=== PATIENT | male | born 1995 | race African-American/Black ===

== ENCOUNTER 2018-10-06 09:46 | Inpatient (IN) | payer OTHER ==
--- NOTE | 2018-10-06 11:34 | HP ---
COWS - Scale Resting Pulse: 0= [place] 80 or Below Sweatin= Chills/Flushing Restless Observation: 1= Difficult to Sit Still Pupil Size: 2= Moderately Dilated Bone or Joint Aches: 2= Severe Diffuse Aches Runny Nose/ Eye Tearin= Runny Nose/Eyes GI Upset > 30mins: 3= Vomiting/Diarrhea Tremor Observation: 2= Slight Tremor Visible Yawning Observation: 2= >3x During Session Anxiety or Irritability: 2=Irritable/Anxious Goose Flesh Skin: 0=Smooth Skin COWS Score: 17 CIWA Score - Admission Criteria OASAS Guidelines: Admission for Medically Managed Detox: Requires at least one of the followin. CIWA greater than 12 2. Seizures within the past 24 hours 3. Delirium tremens within the past 24 hours 4. Hallucinations within the past 24 hours 5. Acute intervention needed for co occurring medical disorder 6. Acute intervention needed for co occurring psychiatric disorder 7. Severe withdrawal that cannot be handled at a lower level of care (continued vomiting, continued diarrhea, abnormal vital signs) requiring intravenous medication and/or fluids 8. Admission ROS [facility] - HPI Chief Complaint: i need help to stop using heroin Allergies/Adverse Reactions: Allergies Allergy/AdvReac Type Severity Reaction Status Date / Time No Known Allergies Allergy Verified 10/06/18 11:34 History of Present Illness: this 23 years old male with heroin dependence,seeking detox,withdrawal symptom never been in detox before nicotine dependence 1 pack/day,would like to have nicotine patch and gum bipolar disorder,depression,non compliance Exam Limitations: No Limitations - Ebola screening Have you traveled outside of the country in the last 21 days: No (N) Have you had contact with anyone from an Ebola affected area: No Do you have a fever: No - Review of Systems Constitutional: Chills, Loss of Appetite, Malaise, Night Sweats, Changes in sleep, Weakness, Unintentional Wgt. Loss EENT: reports: Tearing, Nose Congestion Respiratory: reports: No Symptoms reported Cardiac: reports: No Symptoms Reported GI: reports: Nausea, Poor Appetite, Abdominal cramping : reports: No Symptoms Reported Musculoskeletal: reports: Back Pain, Joint Pain, Muscle Pain Integumentary: reports: Dryness Neuro: reports: Tremors Endocrine: reports: No Symptoms Reported Hematology: reports: No Symptoms Reported Psychiatric: reports: No Sypmtoms Reported, Judgement Intact, Mood/Affect Appropiate, Orientated x3, other (bipolar disorder,anxiety,depression) Patient History - Patient Medical History Hx Anemia: No Hx Asthma: No Hx Chronic Obstructive Pulmonary Disease (COPD): No Hx Cancer: No Hx Cardiac Disorders: No Hx Congestive Heart Failure: No Hx Hypertension: No Hx Hypercholesterolemia: No Hx Pacemaker: No HX Cerebrovascular Accident: No Hx Seizures: No Hx Dementia: No Hx Diabetes: No Hx Gastrointestinal Disorders: No Hx Liver Disease: No Hx Genitourinary Disorders: No Hx Sexually Transmitted Disorders: No Hx Renal Disease (ESRD): No Hx Thyroid Disease: No Hx Human Immunodeficiency Virus (HIV): No (last 2017 negative) Hx Hepatitis C: No Hx Depression: Yes Hx Suicide Attempt: No Hx Bipolar Disorder: Yes (no med) Hx Schizophrenia: No Other Medical History: no suicidal,no homicidal - Patient Surgical History Past Surgical History: No - Smoking Cessation Smoking history: Current every day smoker Have you smoked in the past 12 months: Yes Aproximately how many cigarettes per day: 20 Hx Chewing Tobacco Use: No Initiated information on smoking cessation: Yes 'Breaking Loose' booklet given: 10/06/18 - Substance & Tx. History Hx Alcohol Use: Yes Hx Substance Use: Yes Substance Use Type: Alcohol, Heroin, Marijuana Hx Substance Use Treatment: No - Substances abused Heroin Substance route: Injection Frequency: Daily Amount used: 10 bags Age of first use: 22 Date of last use: 10/06/18 Marijuana/Hashish Substance route: Smoking Frequency: 1-3 times last 30 days Amount used: 30$ Age of first use: 15 Date of last use: 10/06/18 Alcohol Substance route: Oral Frequency: 1-2 times per week Amount used: 06/01 vodka Age of first use: 13 Date of last use: 09/27/18 Family Disease History - Family Disease History Family Disease History: Other: Grandparent (alcohol,) Admission Physical Exam [facility] - Physical General Appearance: Yes: Moderate Distress, Tremorous, Irritable, Sweating, Anxious HEENTM: Yes: Within Normal Limits, Normal ENT Inspection, DE, Pharynx Normal Respiratory: Yes: Lungs Clear, Normal Breath Sounds, No Respiratory Distress Neck: Yes: Within Normal Limits, Supple, Trachea in good position Breast: Yes: Within Normal Limits Cardiology: Yes: Within Normal Limits, Regular Rhythm, Regular Rate, S1, S2 Abdominal: Yes: Within Normal Limits, Normal Bowel Sounds, Non Tender, Flat, Soft Genitourinary: Yes: Within Normal Limits Back: Yes: Muscle Spasm Musculoskeletal: Yes: full range of Motion, Back pain, Joint Stiffness, Muscle Pain Extremities: Yes: Tremors Neurological: Yes: outside salesman II-XII NML intact, Fully Oriented, Alert, Motor Strength 5/5 Integumentary: Yes: Dry, Track Kwon Lymphatic: Yes: Within Normal Limits - Diagnostic (1) Opioid dependence with withdrawal Current Visit: Yes Status: Acute (2) Cannabis dependence Current Visit: Yes Status: Acute (3) Alcohol abuse Current Visit: Yes Status: Acute (4) Nicotine dependence Current Visit: Yes Status: Acute (5) Weight loss Current Visit: Yes Status: Acute (6) IVDU (intravenous drug user) Current Visit: Yes Status: Acute (7) Bipolar disorder (manic depression) Current Visit: Yes Status: Acute Cleared for Admission S - Detox or Rehab [facility] Level of Care: Medically Managed Detox Regimen/Protocol: Methadone Inpatient Rehab Admission - Rehab Decision to Admit Inpatient rehab admission?: No
[2018-10-06] MEDS ORDERED: BISMUTH SUBSALICYLATE 524 MG/30 ML UD PO PRN (11:52)
[2018-10-06] MEDS ORDERED: MENTHOL/PHENOL 1 EACH UD MM PRN (11:52)
[2018-10-06] MEDS ORDERED: IBUPROFEN 400 MG TABLET (FP) PO PRN (11:52)
[2018-10-06] MEDS ORDERED: MAGNESIUM HYDROX 2400MG/30ML ORAL SUSPENSION 30 ML CUP PO PRN (11:52)
[2018-10-06] MEDS ORDERED: MAGNESIUM CITRATE 300 ML BOTTLE PO PRN (11:52)
[2018-10-06] MEDS ORDERED: cloNIDine HCL 0.1 MG TABLET PO PRN (11:52)
[2018-10-06] MEDS ORDERED: ACETAMINOPHEN 325 MG TABLET (FP) PO PRN ×2 (11:52)
[2018-10-06] MEDS ORDERED: METHADONE HCL 10 MG TABLET (FOR DETOX USE ONLY) PO ONE ×2 (11:56→23:00)
[2018-10-06 12:13] VITALS: BMI 22.0
[2018-10-06] MEDS: diazePAM 5 MG TABLET PO PRN ×2 (13:25→18:18)
[2018-10-06] MEDS: NICOTINE 21 MG/24 HOURS TOPICAL PATCH TD SCH (13:28)
[2018-10-06] MEDS: METHOCARBAMOL 500 MG TABLET PO PRN (18:18)
[2018-10-06] MEDS: THIAMINE HCL 100 MG TABLET (FP) PO SCH (22:38)
[2018-10-06] MEDS: MELATONIN 5 MG TABLETS PO PRN (22:38)
[2018-10-07] MEDS ORDERED: METHADONE HCL 10 MG TABLET (FOR DETOX USE ONLY) PO ONE (10:00)
[2018-10-07 10:07] LABS: HEMATOCRIT 35.2 % (35.4-49); MCHC 31.3 g/dl (32.0-35.9); MEAN CELL VOLUME 76.5 fl (80-96); PLATELET COUNT 268 K/MM3 (134-434); RDW 14.6 % (11.9-15.9); WHITE BLOOD COUNT 5.5 K/mm3 (4.0-10.0)
[2018-10-07] MEDS: NICOTINE 21 MG/24 HOURS TOPICAL PATCH TD SCH (10:07)
[2018-10-07] MEDS: PRENATAL VITAMINS W/ FOLIC ACID TABLET (FP) PO SCH (10:07)
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
[2018-10-07] MEDS: diazePAM 5 MG TABLET PO PRN ×4 (10:41→23:10)
[2018-10-07] MEDS: METHOCARBAMOL 500 MG TABLET PO PRN (10:41)
[2018-10-07 10:53] LABS: ALBUMIN 3.3 g/dl (3.4-5.0); BILIRUBIN,TOTAL 0.1 mg/dL (0.2-1); CALCIUM 8.6 mg/dL (8.5-10.1); CREATININE 0.7 mg/dL (0.55-1.3); POTASSIUM 3.9 mmol/L (3.5-5.1); TOT PROT 6.2 g/dl (6.4-8.2)
[2018-10-07] MEDS: NICOTINE POLACRILEX 2 MG GUM BUC PRN ×3 (10:57→19:19)
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
--- NOTE | 2018-10-07 15:10 | EKG ---
Test Reason : Blood Pressure : / mmHG Vent. Rate : 057 BPM Atrial Rate : 057 BPM P-R Int : 158 ms QRS Dur : 092 ms QT Int : 412 ms P-R-T Axes : 069 071 052 degrees QTc Int : 401 ms SINUS BRADYCARDIA MINIMAL VOLTAGE CRITERIA FOR LVH, MAY BE NORMAL VARIANT BORDERLINE ECG NO PREVIOUS ECGS AVAILABLE Confirmed by ADDIE TOMLINSON MD ([id number]) on 10/07/2018 3:10:10 PM Referred By: Confirmed By:ADDIE TOMLINSON MD
[2018-10-07] MEDS: FERROUS SO4 325 MG TABLET (FP) PO SCH (18:02)
[2018-10-07] MEDS: THIAMINE HCL 100 MG TABLET (FP) PO SCH (22:59)
[2018-10-07] MEDS: MELATONIN 5 MG TABLETS PO PRN (23:09)
[2018-10-08] MEDS: diazePAM 5 MG TABLET PO PRN ×4 (06:19→22:36)
[2018-10-08] MEDS: FERROUS SO4 325 MG TABLET (FP) PO SCH ×2 (07:20→16:49)
[2018-10-08] MEDS ORDERED: METHADONE HCL 10 MG TABLET (FOR DETOX USE ONLY) PO ONE (10:00)
--- NOTE | 2018-10-08 10:26 | PN ---
BHS COWS - Scale Resting Pulse: 0= [place] 80 or Below Sweatin= Chills/Flushing Restless Observation: 1= Difficult to Sit Still Pupil Size: 1= Pupils >than Normal Bone or Joint Aches: 2= Severe Diffuse Aches Runny Nose/ Eye Tearin= Nasal Congestion GI Upset > 30mins: 2= Nausea/Diarrhea Tremor Observation of Outstretched Hands: 2= Slight Tremor Visible Yawning Observation: 1= 1-2x During Session Anxiety or Irritability: 2=Irritable/Anxious Goose Flesh Skin: 0=Smooth Skin COWS Score: 13 BHS Progress Note (SOAP) Subjective: alert,irritable,anxious,interrupted sleep,tremor,pain in the body and back Objective: 10/08/18 10:25 Vital Signs Temperature 97.7 F 10/08/18 09:26 Pulse Rate 486 H 10/08/18 09:26 Respiratory Rate 18 10/08/18 09:26 Blood Pressure 100/55 L 10/08/18 09:26 O2 Sat by Pulse Oximetry (%) Assessment: 10/08/18 10:26 withdrawal symptom Plan: continue detox
[2018-10-08] MEDS: NICOTINE 21 MG/24 HOURS TOPICAL PATCH TD SCH (11:17)
[2018-10-08] MEDS: PRENATAL VITAMINS W/ FOLIC ACID TABLET (FP) PO SCH (11:17)
[2018-10-08 12:25] LABS: PH,URINE 6.5 (5.0-8.0); URINE APPEARANCE CLEAR; URINE BILIRUBIN NEGATIVE (NEGATIVE); URINE COLOR YELLOW; URINE GLUCOSE (UA) NEGATIVE (NEGATIVE); URINE KETONE NEGATIVE (NEGATIVE); URINE LEUK ESTERASE NEGATIVE (NEGATIVE); URINE NITRITE NEGATIVE (NEGATIVE); URINE PROTEIN NEGATIVE (NEGATIVE); URINE UROBILINOGEN 0.2 mg/dL (0.2-1.0)
[2018-10-08] MEDS: NICOTINE POLACRILEX 2 MG GUM BUC PRN ×2 (14:46→22:36)
[2018-10-08] MEDS: MAG HYDROX/AL HYDROX/SIMETH 30 ML UNIT-DOSE CUP PO PRN (16:17)
[2018-10-08] MEDS: THIAMINE HCL 100 MG TABLET (FP) PO SCH (22:33)
[2018-10-08] MEDS: METHOCARBAMOL 500 MG TABLET PO PRN (22:36)
[2018-10-09] MEDS: diazePAM 5 MG TABLET PO PRN ×2 (06:16→10:06)
[2018-10-09] MEDS: FERROUS SO4 325 MG TABLET (FP) PO SCH ×2 (07:18→16:45)
[2018-10-09] MEDS ORDERED: METHADONE HCL 5 MG TABLET (FOR DETOX USE ONLY) ONE (08:51)
[2018-10-09] MEDS ORDERED: METHADONE HCL 10 MG TABLET (FOR DETOX USE ONLY) ONE (08:51)
[2018-10-09] MEDS ORDERED: METHADONE (DETOX) 10 MG, METHADONE (DETOX) 5 MG PO ONE (10:00)
[2018-10-09] MEDS ORDERED: METHADONE HCL 10 MG TABLET (FOR DETOX USE ONLY) PO ONE (10:00)
[2018-10-09] MEDS: PRENATAL VITAMINS W/ FOLIC ACID TABLET (FP) PO SCH (10:05)
[2018-10-09] MEDS: NICOTINE 21 MG/24 HOURS TOPICAL PATCH TD SCH (10:06)
[2018-10-09] MEDS: METHOCARBAMOL 500 MG TABLET PO PRN ×2 (10:06→22:11)
--- NOTE | 2018-10-09 15:06 | PN ---
BHS COWS - Scale Resting Pulse: 0= [place] 80 or Below Sweatin= No chills or Flushing Restless Observation: 1= Difficult to Sit Still Pupil Size: 0= Normal to Room Light Bone or Joint Aches: 2= Severe Diffuse Aches Runny Nose/ Eye Tearin= None GI Upset > 30mins: 2= Nausea/Diarrhea Tremor Observation of Outstretched Hands: 0= None Yawning Observation: 1= 1-2x During Session Anxiety or Irritability: 2=Irritable/Anxious Goose Flesh Skin: 0=Smooth Skin COWS Score: 8 BHS Progress Note (SOAP) Subjective: Diarrhea, Body Aches, Anxious, Interrupted Sleep. Objective: PATIENT A & O X 3, OBSERVED AMBULATING ON UNIT UNASSISTED. IN NO ACUTE DISTRESS. 10/09/18 15:04 Vital Signs Temperature 96.6 F L 10/09/18 13:18 Pulse Rate 78 10/09/18 13:18 Respiratory Rate 18 10/09/18 13:18 Blood Pressure 122/71 10/09/18 13:18 O2 Sat by Pulse Oximetry (%) Laboratory Tests 10/07/18 10/07/18 10/07/18 07:40 07:40 07:40 WBC 5.5 RBC 4.60 Hgb 11.0 L Hct 35.2 L MCV 76.5 L MCH 24.0 L MCHC 31.3 L RDW 14.6 Plt Count 268 MPV 8.0 Sodium 137 Potassium 3.9 Chloride 106 Carbon Dioxide 26 Anion Gap 6 L BUN 9 Creatinine 0.7 Est GFR (CKD-EPI)AfAm 155.25 Est GFR (CKD-EPI)NonAf 133.96 Random Glucose 90 Calcium 8.6 Total Bilirubin 0.1 L AST 16 ALT 27 Alkaline Phosphatase 70 Total Protein 6.2 L Albumin 3.3 L Urine Color Urine Appearance Urine pH Ur Specific [place] Urine Protein Urine Glucose (UA) Urine Ketones Urine Blood Urine Nitrite Urine Bilirubin Urine Urobilinogen Ur Leukocyte Esterase RPR Titer Nonreactive HIV 1&2 Antibody Screen HIV P24 Antigen 10/07/18 10/08/18 11:50 07:30 WBC RBC Hgb Hct MCV MCH MCHC RDW Plt Count MPV Sodium Potassium Chloride Carbon Dioxide Anion Gap BUN Creatinine Est GFR (CKD-EPI)AfAm Est GFR (CKD-EPI)NonAf Random Glucose Calcium Total Bilirubin AST ALT Alkaline Phosphatase Total Protein Albumin Urine Color Yellow Urine Appearance Clear Urine pH 6.5 Ur Specific [place] 1.022 Urine Protein Negative Urine Glucose (UA) Negative Urine Ketones Negative Urine Blood Negative Urine Nitrite Negative Urine Bilirubin Negative Urine Urobilinogen 0.2 Ur Leukocyte Esterase Negative RPR Titer HIV 1&2 Antibody Screen Negative HIV P24 Antigen Negative LABS NOTED. Assessment: 10/09/18 15:05 WITHDRAWAL SYMPTOMS. ANEMIA (MICROCYTIC). PATIENT REPORTS HISTORY OF ANEMIA IN PAST. Plan: CONTINUE DETOX. INCREASE DAILY PO FLUID / WATER INTAKE. CONTINUE FEOSOL PO.
[2018-10-09] MEDS: hydrOXYzine PAMOATE 25 MG CAPSULE (FP) PO PRN ×2 (16:45→22:11)
[2018-10-09] MEDS: MELATONIN 5 MG TABLETS PO PRN (22:11)
[2018-10-09] MEDS: THIAMINE HCL 100 MG TABLET (FP) PO SCH (22:29)
[2018-10-10] MEDS: hydrOXYzine PAMOATE 25 MG CAPSULE (FP) PO PRN (05:42)
[2018-10-10] MEDS ORDERED: METHADONE HCL 5 MG TABLET (FOR DETOX USE ONLY) PO ONE (06:00)
[2018-10-10] MEDS: FERROUS SO4 325 MG TABLET (FP) PO SCH ×2 (09:51→16:56)
[2018-10-10] MEDS: PRENATAL VITAMINS W/ FOLIC ACID TABLET (FP) PO SCH (09:51)
[2018-10-10] MEDS: NICOTINE 21 MG/24 HOURS TOPICAL PATCH TD SCH (09:52)
[2018-10-10] MEDS ORDERED: METHADONE HCL 10 MG TABLET (FOR DETOX USE ONLY) PO ONE (10:00)
[2018-10-10] MEDS: hydrOXYzine PAMOATE 50 MG CAPSULE (FP) PO PRN ×3 (10:41→22:48)
[2018-10-10] MEDS: MAG HYDROX/AL HYDROX/SIMETH 30 ML UNIT-DOSE CUP PO PRN (11:38)
--- NOTE | 2018-10-10 14:31 | PN ---
S Progress Note (SOAP) Subjective: alert,irritable,anxious,interrupted sleep Objective: 10/10/18 14:30 Vital Signs Temperature 97.0 F L 10/10/18 10:34 Pulse Rate 93 H 10/10/18 10:34 Respiratory Rate 18 10/10/18 10:34 Blood Pressure 143/76 10/10/18 10:34 O2 Sat by Pulse Oximetry (%) Assessment: 10/10/18 14:30 withdrawal symptom Plan: continue detox,discharge in am
[2018-10-10] MEDS: MELATONIN 5 MG TABLETS PO PRN (22:48)
[2018-10-10] MEDS: METHOCARBAMOL 500 MG TABLET PO PRN (22:48)
[2018-10-10] MEDS: THIAMINE HCL 100 MG TABLET (FP) PO SCH (23:40)
[2018-10-11] MEDS ORDERED: METHADONE HCL 5 MG TABLET (FOR DETOX USE ONLY) PO ONE (06:00)
[2018-10-11] MEDS: hydrOXYzine PAMOATE 50 MG CAPSULE (FP) PO PRN (06:03)
[2018-10-11] MEDS: FERROUS SO4 325 MG TABLET (FP) PO SCH (07:00)
[2018-10-11 07:01] VITALS: BP 112/58; PULSE 60; TEMP 97.7
--- NOTE | 2018-10-11 09:34 | DS ---
[facility] Detox Discharge Summary Admission Date: 10/06/18 Discharge Date: 10/11/18 - History Present History: Alcohol Dependence, Cannabis Dependence, Cocaine Dependence, Opioid Dependence - Physical Exam Results Vital Signs: Vital Signs Temperature 97.7 F 10/11/18 07:00 Pulse Rate 60 10/11/18 07:00 Respiratory Rate 16 10/11/18 07:00 Blood Pressure 112/58 L 10/11/18 07:00 O2 Sat by Pulse Oximetry (%) - Treatment Hospital Course: Detox Protocol Followed, Detoxed Safely, Responded well, Discharged Condition Good, Rehab Referral Accepted - Medication Discharge Medications: Ambulatory Orders NK [No Known Home Medication] 10/06/18 - Diagnosis (1) Anemia Status: Acute Qualifiers: Anemia type: iron deficiency Iron deficiency anemia type: unspecified iron deficiency Qualified Code(s): D50.9 - Iron deficiency anemia, unspecified (2) Cannabis dependence Status: Chronic (3) IVDU (intravenous drug user) Status: Chronic (4) Nicotine dependence Status: Chronic Qualifiers: Nicotine product type: cigarettes Substance use status: uncomplicated Qualified Code(s): F17.210 - Nicotine dependence, cigarettes, uncomplicated (5) Opioid dependence with withdrawal Status: Chronic (6) Substance-induced anxiety disorder Status: Acute (7) Substance-induced sleep disorder Status: Acute (8) Weight loss Status: Acute (9) Bipolar disorder (manic depression) Status: Chronic - AMA Did Patient Leave Against Medical Advice: No (pt going home.)
== END 2018-10-11 07:40 | disposition home or self-care (01) | DRG 773 ==
LOC: YASAS 09:46 → Y6N 12:11
PROVIDERS: ADMIT Surgery; ATTEND Surgery
PROC: HZ2ZZZZ Detoxification Services for Substance Abuse Treatment (ICD-10-PCS; principal; 2018-10-06)
DX: F11.23 Opioid dependence with withdrawal (principal); F12.20 Cannabis dependence, uncomplicated; F10.10 Alcohol abuse, uncomplicated; F17.210 Nicotine dependence, cigarettes, uncomplicated; F19.280 Other psychoactive substance dependence with psychoactive substance-induced anxiety disorder; F19.282 Other psychoactive substance dependence with psychoactive substance-induced sleep disorder; F31.9 Bipolar disorder, unspecified; D50.9 Iron deficiency anemia, unspecified; R63.4 Abnormal weight loss
CPT/HCPCS: 36415; 80053; 81003; 85027; 86593; 87389; 93005; 93010

== ENCOUNTER 2020-02-10 15:16 | Inpatient (IN) | payer OTHER ==
--- NOTE | 2020-02-10 15:39 | BHS.RME ---
Substance Use & Tx History - Substance Use History Alcohol Substance amount: 1.5 pints bourbon Frequency of use: Daily Substance route: Oral Date of Last Use: 02/10/20 (started at age 15) Heroin Substance amount: 10 bundles Frequency of use: Daily Substance route: Inhalation (ex: sniffing or snorting), Injection (ex: intravenous or skin popping) Date of Last Use: 02/10/20 Nicotine Substance amount: 1 pack Frequency of use: Daily Substance route: Smoking (t) Physical/Psych/Mental Status - Behavior General Behavior: Increased activity (restlessness, agitation) Eye Contact: Normal - Cooperativeness Cooperativeness: Cooperative - Thinking Thought Processes: Tight, Logical, Goal Directed Thought content: Future oriented - Physical Health Problems Is patient presently having any pain?: No Does patient presently have any injuries (include location): No Does patient currently have a fever: No Is patient : No COWS - Scale Resting Pulse: 0= [place] 80 or Below Sweatin= No chills or Flushing Restless Observation: 1= Difficult to Sit Still Pupil Size: 0= Normal to Room Light Bone or Joint Aches: 1= Mild Discomfort Runny Nose/ Eye Tearin= None GI Upset > 30mins: 1= Stomach Cramp (not yet in [facility] having used just hours prior to being admitted.) Tremor Observation: 1= Tremor [place], Not Seen Yawning Observation: 1= 1-2x During Session Anxiety or Irritability: 1=Feels Anxious/Irritable Goose Flesh Skin: 0=Smooth Skin COWS Score: 6 CIWA Nausea/Vomitin Muscle Tremors: 1-None Visible, but [place] Anxiety: 1-Mildly Anxious Agitation: 1-Slight > Activity Paroxysmal Sweats: 1-Minimal Palms Moist Orientation: 0-Oriented Tacttile Disturbances: 0-None Auditory Disturbances: 0-None Visual Disturbances: 0-None Headache: 0-None Present (used earlier just before admission not yet in withdrawals) CIWA-Ar Total Score: 6
--- NOTE | 2020-02-10 16:45 | HP ---
COWS - Scale Resting Pulse: 0= [place] 80 or Below Sweatin=Flushed/Facial Moisture Restless Observation: 1= Difficult to Sit Still Pupil Size: 0= Normal to Room Light Bone or Joint Aches: 2= Severe Diffuse Aches Runny Nose/ Eye Tearin= None GI Upset > 30mins: 2= Nausea/Diarrhea Tremor Observation: 2= Slight Tremor Visible Yawning Observation: 1= 1-2x During Session Anxiety or Irritability: 4=Extreme Anxiety Goose Flesh Skin: 0=Smooth Skin COWS Score: 14 CIWA Score Nausea/Vomitin Muscle Tremors: 3 Anxiety: 4-Mod. Anxious/Guarded Agitation: 3 Paroxysmal Sweats: 2 Orientation: 1-Uncertain about Date Tacttile Disturbances: 0-None Auditory Disturbances: 0-None Visual Disturbances: 0-None Headache: 2-Mild CIWA-Ar Total Score: 17 - Admission Criteria OASAS Guidelines: Admission for Medically Managed Detox: Requires at least one of the followin. CIWA greater than 12 2. Seizures within the past 24 hours 3. Delirium tremens within the past 24 hours 4. Hallucinations within the past 24 hours 5. Acute intervention needed for co occurring medical disorder 6. Acute intervention needed for co occurring psychiatric disorder 7. Severe withdrawal that cannot be handled at a lower level of care (continued vomiting, continued diarrhea, abnormal vital signs) requiring intravenous medication and/or fluids 8. Admitting History and Physical - Smoking History Smoking history: Current every day smoker Have you smoked in the past 12 months: Yes Aproximately how many cigarettes per day: 20 - Alcohol/Substance Use Hx Alcohol Use: Yes Admission [facility] Chief Complaint: Heroin and alcohol withdrawal symptoms Allergies/Adverse Reactions: Allergies Allergy/AdvReac Type Severity Reaction Status Date / Time No Known Allergies Allergy Verified 02/10/20 17:42 History of Present Illness: 24 years old male with 2 years of heroin dependence and eleven years of alcohol dependence is seeking admission to detox. His last admission to [facility] was for the period 10/06/2018 - 10/11/2018 and he reports that he relapsed 2 months ago. He reports use of 10 bags of heroin intravenously and 2 pints of Paty daily. He has medical history of anemia, psych. history of bipolar 1 disorder and depression. He denies suicidal ideation at this time. 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 He is unemployed, homeless and denies pending legal issues. He reports that he prefers Ativan for his alcohol detoxification because it helps him better. Exam Limitations: Intoxication (LISA =.241) - Ebola screening Have you traveled outside of the country in the last 21 days: No Have you had contact with anyone from an Ebola affected area: No Have you been sick,other than usual withdrawal symptoms: No Do you have a fever: No - Review of Systems Constitutional: Chills, Loss of Appetite, Malaise, Night Sweats EENT: reports: No Symptoms Reported Respiratory: reports: No Symptoms reported Cardiac: reports: No Symptoms Reported GI: reports: Nausea, Poor Appetite, Poor Fluid Intake, Abdominal cramping : reports: No Symptoms Reported Musculoskeletal: reports: Back Pain Integumentary: reports: Dryness, Flushing Neuro: reports: Tremors Endocrine: reports: No Symptoms Reported Hematology: reports: No Symptoms Reported Psychiatric: reports: Mood/Affect Appropiate, Orientated x3 Other Systems: Reviewed and Negative Patient History - Patient Medical History Hx Anemia: No Hx Asthma: No Hx Chronic Obstructive Pulmonary Disease (COPD): No Hx Cancer: No Hx Cardiac Disorders: No Hx Congestive Heart Failure: No Hx Hypertension: No Hx Hypercholesterolemia: No Hx Pacemaker: No HX Cerebrovascular Accident: No Hx Seizures: No Hx Dementia: No Hx Diabetes: No Hx Gastrointestinal Disorders: No Hx Liver Disease: No Hx Genitourinary Disorders: No Hx Sexually Transmitted Disorders: No Hx Renal Disease (ESRD): No Hx Thyroid Disease: No Hx Human Immunodeficiency Virus (HIV): No (Negative 2020) Hx Hepatitis C: No Hx Depression: Yes (Not on medication) Hx Suicide Attempt: No (Denies suicidal ideation at this time) Hx Bipolar Disorder: Yes (Not on medication) Hx Schizophrenia: No - Patient Surgical History Past Surgical History: No - PPD History Previous Implant?: Yes Documented Results: Negative w/proof Implanted On Prior R Admission?: Yes Date: 10/06/18 PPD to be Administered?: Yes - Reproductive History Patient is a Female of Child Bearing Age (11 -55 yrs old): No (Male) - Smoking Cessation Smoking history: Current every day smoker Have you smoked in the past 12 months: Yes Aproximately how many cigarettes per day: 20 Hx Chewing Tobacco Use: No Initiated information on smoking cessation: Yes 'Breaking Loose' booklet given: 02/10/20 - Substance & Tx. History Hx Alcohol Use: Yes Hx Substance Use: Yes Substance Use Type: Alcohol, Heroin Hx Substance Use Treatment: Yes ([facility]) - Substances abused Alcohol Substance route: Oral Frequency: Daily Amount used: 2 pints of Paty Age of first use: 13 Date of last use: 02/10/20 Heroin Substance route: Injection Frequency: Daily Amount used: 10 bags Age of first use: 22 Date of last use: 02/10/20 Admission Physical Exam [facility] - Physical General Appearance: Yes: Severe Distress, Intoxicated, Tremorous, Irritable, Anxious HEENTM: Yes: Within Normal Limits Respiratory: Yes: Lungs Clear, Normal Breath Sounds, No Respiratory Distress Neck: Yes: Within Normal Limits Breast: Yes: Breast Exam Deferred Cardiology: Yes: Tachycardia, Other (elevated blood pressure 146/91) Abdominal: Yes: Normal Bowel Sounds, Soft Genitourinary: Yes: Within Normal Limits Back: Yes: Normal Inspection Extremities: Yes: Tremors Neurological: Yes: Within Normal Limits Integumentary: Yes: Within Normal Limits, Track Kwon (bilateral hands) Lymphatic: Yes: Within Normal Limits - Diagnostic (1) Alcohol dependence with withdrawal, uncomplicated Current Visit: Yes Status: Acute (2) Depression Current Visit: Yes Status: Chronic Qualifiers: Depression Type: major depressive disorder (3) Anemia Current Visit: Yes Status: Chronic Qualifiers: Anemia type: iron deficiency Iron deficiency anemia type: unspecified iron deficiency Qualified Code(s): D50.9 - Iron deficiency anemia, unspecified (4) Bipolar disorder (manic depression) Current Visit: Yes Status: Chronic (5) IVDU (intravenous drug user) Current Visit: Yes Status: Chronic (6) Nicotine dependence Current Visit: Yes Status: Chronic Qualifiers: Nicotine product type: cigarettes Substance use status: uncomplicated Qualified Code(s): F17.210 - Nicotine dependence, cigarettes, uncomplicated (7) Opioid dependence with withdrawal Current Visit: Yes Status: Acute Cleared for Admission [facility] - Detox or Rehab [facility] Level of Care: Medically Managed Detox Regimen/Protocol: Ativan, Methadone Claeared for Rehab Admission: No Breathalyzer - Breathalyzer Breathalyzer: 0.241 Urine Drug Screen - Test Device Lot number: [id number] Expiration date: 09/02/21 - Control Is test valid?: Yes - Results Drug screen NEGATIVE: No Urine drug screen results: FEN-Fentanyl, MOP-Opiates, MTD-Methadone Inpatient Rehab Admission - Rehab Decision to Admit Inpatient rehab admission?: No
[2020-02-10] MEDS ORDERED: METHOCARBAMOL 500 MG TABLET PO PRN (16:59)
[2020-02-10] MEDS ORDERED: MAG HYDROX/AL HYDROX/SIMETH 30 ML UNIT-DOSE CUP PO PRN (16:59)
[2020-02-10] MEDS ORDERED: IBUPROFEN 400 MG TABLET (FP) PO PRN (16:59)
[2020-02-10] MEDS ORDERED: MAGNESIUM CITRATE 300 ML BOTTLE PO PRN (16:59)
[2020-02-10] MEDS ORDERED: ONDANSETRON *ODT* 4 MG TABLET SL PRN (16:59)
[2020-02-10] MEDS ORDERED: BISMUTH SUBSALICYLATE 524 MG/30 ML UD PO PRN (16:59)
[2020-02-10] MEDS ORDERED: MAGNESIUM HYDROX 2400MG/30ML ORAL SUSPENSION 30 ML CUP PO PRN (16:59)
[2020-02-10] MEDS ORDERED: MENTHOL/PHENOL 1 EACH UD MM PRN (16:59)
[2020-02-10] MEDS ORDERED: ACETAMINOPHEN 325 MG TABLET (FP) PO PRN ×2 (16:59)
[2020-02-10 17:01] VITALS: BMI 21.2
--- OUTSIDE RECORDS SUMMARY | 2020-02-10 17:58 | XMS ---
:1995 Author Organization [facility] Support Name Relationship Address Phone UE Unavailable Unavailable Unavailable DEEP NELSON MOTHER [address] [place] [address] Re-disclosure Warning The records that you are about to access may contain information from federally- assisted alcohol or drug abuse programs. If such information is present, then the following federally mandated warning applies: This information has been disclosed to you from records protected by federal confidentiality rules (42 CFR part 2). The federal rules prohibit you from making any further disclosure of this information unless further disclosure is expressly permitted by the written consent of the person to whom it pertains or as otherwise permitted by 42 CFR part 2. A general authorization for the release of medical or other information is NOT sufficient for this purpose. The Federal rules restrict any use of the information to criminally investigate or prosecute any alcohol or drug abuse patient.The records that you are about to access may contain highly sensitive health information, the redisclosure of which is protected by Article 27-F of the [facility] Public Health law. If you continue you may haveaccess to information: Regarding HIV / AIDS; Provided by facilities licensed or operated by the [facility] Office of Mental Health; or Provided by the [facility] Office for People With Developmental Disabilities. If such information is present, then the following [facility] mandated warning applies: This information has been disclosed to you from confidential records which are protected by state law. State law prohibits you from making any further disclosure of this information without the specific written consent of the person to whom it pertains, or as otherwise permitted by law. Any unauthorized further disclosure in violation of state law may result in a fine or fci sentence or both. A general authorization for the release of medical or other information is NOT sufficient authorization for further disclosure. Insurance Providers Payer name Policy type Policy ID Covered Covered green party's Policy P melany / Coverage green party ID relationship to [employer]rera Inf ormation type herrera MEDICAID [id number] SP [id number]
[2020-02-10] MEDS ORDERED: METHADONE HCL 10 MG TABLET (FOR DETOX USE ONLY) PO ONE (18:30)
--- OUTSIDE RECORDS SUMMARY | 2020-02-10 19:38 | XMS ---
:1995 Author Organization [facility] Support Name Relationship Address Phone UE Unavailable Unavailable Unavailable DEEP NELSON MOTHER [address] [place] [address] Re-disclosure Warning The records that you are [...] is protected by Article 27-F of the [facility] Public Health law. If you continue you may haveaccess to information: Regarding HIV / AIDS; Provided by facilities licensed or operated by the [facility] Office of Mental Health; or Provided by the [facility] Office for People With Developmental Disabilities. If such information is present, then the following [facility] mandated warning applies: This information has [...] law may result in a fine or intermediate sentence or both. A general authorization for the release of medical or other information is NOT sufficient authorization for further disclosure. Insurance Providers Payer name Policy type Policy ID Covered Covered constitution party's Policy P melany / Coverage constitution party ID relationship to Herrera Inf ormation type herrera [employer]AC[place] [id number] SP [id number] [employer] [id number] SP [id number]
[2020-02-10] MEDS: NICOTINE POLACRILEX 2 MG GUM BUC PRN (20:57)
[2020-02-10] MEDS ORDERED: MELATONIN 5 MG TABLETS PO SCH (22:00)
[2020-02-10] MEDS: LORazepam 2 MG TABLET PO SCH (22:14)
[2020-02-10] MEDS: THIAMINE HCL 100 MG TABLET (FP) PO SCH (22:14)
[2020-02-11] MEDS: LORazepam 2 MG TABLET PO SCH ×4 (06:32→22:00)
[2020-02-11] MEDS ORDERED: METHADONE HCL 5 MG TABLET (FOR DETOX USE ONLY) ONE (08:48)
[2020-02-11] MEDS ORDERED: METHADONE HCL 10 MG TABLET (FOR DETOX USE ONLY) ONE (08:48)
--- NOTE | 2020-02-11 09:02 | EKG ---
Test Reason : Blood Pressure : / mmHG Vent. Rate : 067 BPM Atrial Rate : 067 BPM P-R Int : 154 ms QRS Dur : 090 ms QT Int : 408 ms P-R-T Axes : 045 067 046 degrees QTc Int : 431 ms NORMAL SINUS RHYTHM NORMAL ECG WHEN COMPARED WITH ECG OF 06-OCT-2018 12:29, NO SIGNIFICANT CHANGE WAS FOUND Confirmed by MD ANUPAM, CLARISSA ([id number]) on 02/11/2020 9:02:36 AM Referred By: Confirmed By:CLARISSA BO MD
[2020-02-11] MEDS ORDERED: METHADONE (DETOX) 20 MG, METHADONE (DETOX) 5 MG PO ONE (10:00)
[2020-02-11] MEDS: PRENATAL VITAMINS W/ FOLIC ACID TABLET (FP) PO SCH (10:08)
[2020-02-11] MEDS: NICOTINE 21 MG/24 HOURS TOPICAL PATCH TD SCH (10:08)
[2020-02-11 10:25] LABS: HEMATOCRIT 35.2 % (35.4-49); HEMOGLOBIN 11.3 GM/dL (11.7-16.9); PLATELET COUNT 235 K/MM3 (134-434); RBC 4.69 M/mm3 (4.00-5.60); RDW 17.2 % (11.9-15.9); WHITE BLOOD COUNT 4.8 K/mm3 (4.0-10.0)
[2020-02-11 10:48] LABS: POTASSIUM 4.2 mmol/L (3.5-5.1)
[2020-02-11 10:57] LABS: ALBUMIN 3.6 g/dl (3.4-5.0); BILIRUBIN,TOTAL 0.9 mg/dL (0.2-1); BLOOD UREA NITROGEN 10.7 mg/dL (7-18); CALCIUM 9.3 mg/dL (8.5-10.1); CREATININE 0.8 mg/dL (0.55-1.3)
--- NOTE | 2020-02-11 11:58 | PN ---
[facility] CIWA - CIWA Score Nausea/Vomitin-No Nausea/No Vomiting Muscle Tremors: 3 Anxiety: 2 Agitation: 3 Paroxysmal Sweats: 3 Orientation: 0-Oriented Tacttile Disturbances: 0-None Auditory Disturbances: 0-None Visual Disturbances: 0-None Headache: 0-None Present CIWA-Ar Total Score: 11 S COWS - Scale Resting Pulse: 0= [place] 80 or Below Sweatin= Chills/Flushing Restless Observation: 1= Difficult to Sit Still Pupil Size: 0= Normal to Room Light Bone or Joint Aches: 1= Mild Discomfort Runny Nose/ Eye Tearin= Nasal Congestion GI Upset > 30mins: 0= None Tremor Observation of Outstretched Hands: 1= Tremor [place], Not Seen Yawning Observation: 1= 1-2x During Session Anxiety or Irritability: 1=Feels Anxious/Irritable Goose Flesh Skin: 0=Smooth Skin COWS Score: 7 [facility] Progress Note (SOAP) Subjective: sweats shakes chills body aches Objective: 02/11/20 11:57 Vital Signs Temperature 99.3 F 02/11/20 09:24 Pulse Rate 66 02/11/20 09:24 Respiratory Rate 18 02/11/20 09:24 Blood Pressure 132/67 02/11/20 09:24 O2 Sat by Pulse Oximetry (%) 96 02/11/20 09:24 Laboratory Tests 02/11/20 02/11/20 02/11/20 07:45 07:45 07:45 WBC 4.8 RBC 4.69 Hgb 11.3 L Hct 35.2 L MCV 75.0 L MCH 24.0 L MCHC 32.0 RDW 17.2 H Plt Count 235 MPV 8.0 Sodium 138 Potassium 4.2 Chloride 102 Carbon Dioxide 29 Anion Gap 7 L BUN 10.7 Creatinine 0.8 Est GFR (CKD-EPI)AfAm 145.93 Est GFR (CKD-EPI)NonAf 125.91 Random Glucose 89 Calcium 9.3 Total Bilirubin 0.9 AST 32 ALT 25 Alkaline Phosphatase 88 Total Protein 7.0 Albumin 3.6 Syphilis Serology Non-reactive labs noted mildly low H:H; pt is currently receiving MVI and pt is eating well aaox3 ambulating no acute distress Assessment: 02/11/20 11:57 withdrawals Plan: continue detox increase fluids
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
[2020-02-11] MEDS: LORazepam 1 MG TABLET PO PRN (14:50)
[2020-02-11] MEDS: cloNIDine HCL 0.1 MG TABLET PO PRN (18:26)
[2020-02-11] MEDS: NICOTINE POLACRILEX 2 MG GUM BUC PRN (21:40)
[2020-02-11] MEDS: THIAMINE HCL 100 MG TABLET (FP) PO SCH (22:00)
[2020-02-11] MEDS: MELATONIN 5 MG TABLETS PO PRN (22:01)
[2020-02-12] MEDS: LORazepam 1 MG TABLET PO SCH ×4 (06:09→22:08)
[2020-02-12] MEDS ORDERED: METHADONE HCL 10 MG TABLET (FOR DETOX USE ONLY) PO ONE (10:00)
[2020-02-12] MEDS: NICOTINE 21 MG/24 HOURS TOPICAL PATCH TD SCH (10:07)
[2020-02-12] MEDS: PRENATAL VITAMINS W/ FOLIC ACID TABLET (FP) PO SCH (10:07)
--- NOTE | 2020-02-12 11:00 | PN ---
[facility] CIWA - CIWA Score Nausea/Vomitin-No Nausea/No Vomiting Muscle Tremors: 3 Anxiety: 3 Agitation: 2 Paroxysmal Sweats: 1-Minimal Palms Moist Orientation: 0-Oriented Tacttile Disturbances: 0-None Auditory Disturbances: 0-None Visual Disturbances: 0-None Headache: 0-None Present CIWA-Ar Total Score: 9 [facility] COWS - Scale Resting Pulse: 0= [place] 80 or Below Sweatin= Chills/Flushing Restless Observation: 0= Sits Still Pupil Size: 0= Normal to Room Light Bone or Joint Aches: 1= Mild Discomfort Runny Nose/ Eye Tearin= None GI Upset > 30mins: 0= None Tremor Observation of Outstretched Hands: 1= Tremor [place], Not Seen Yawning Observation: 1= 1-2x During Session Anxiety or Irritability: 1=Feels Anxious/Irritable Goose Flesh Skin: 0=Smooth Skin COWS Score: 5 S Progress Note (SOAP) Subjective: sweats body aches interrupted sleep Objective: 02/12/20 11:00 Vital Signs Temperature 96.9 F L 02/12/20 08:34 Pulse Rate 64 02/12/20 08:34 Respiratory Rate 20 02/12/20 08:34 Blood Pressure 135/88 02/12/20 08:34 O2 Sat by Pulse Oximetry (%) 98 02/12/20 05:34 Laboratory Tests 02/10/20 02/11/20 02/11/20 18:00 07:45 07:45 WBC 4.8 RBC 4.69 Hgb 11.3 L Hct 35.2 L MCV 75.0 L MCH 24.0 L MCHC 32.0 RDW 17.2 H Plt Count 235 MPV 8.0 Sodium Potassium Chloride Carbon Dioxide Anion Gap BUN Creatinine Est GFR (CKD-EPI)AfAm Est GFR (CKD-EPI)NonAf Random Glucose Calcium Total Bilirubin AST ALT Alkaline Phosphatase Total Protein Albumin Syphilis Serology Non-reactive COVID-19 (JANINE) Not detected 02/11/20 07:45 WBC RBC Hgb Hct MCV MCH MCHC RDW Plt Count MPV Sodium 138 Potassium 4.2 Chloride 102 Carbon Dioxide 29 Anion Gap 7 L BUN 10.7 Creatinine 0.8 Est GFR (CKD-EPI)AfAm 145.93 Est GFR (CKD-EPI)NonAf 125.91 Random Glucose 89 Calcium 9.3 Total Bilirubin 0.9 AST 32 ALT 25 Alkaline Phosphatase 88 Total Protein 7.0 Albumin 3.6 Syphilis Serology COVID-19 (JANINE) aaox3 ambulating no acute distress Assessment: 02/12/20 11:00 withdrawals Plan: continue detox
[2020-02-12] MEDS: LORazepam 1 MG TABLET PO PRN ×2 (12:45→19:05)
[2020-02-12] MEDS: hydrOXYzine PAMOATE 25 MG CAPSULE (FP) PO PRN ×2 (15:15→22:08)
[2020-02-12] MEDS: NICOTINE POLACRILEX 2 MG GUM BUC PRN (17:06)
[2020-02-12] MEDS: cloNIDine HCL 0.1 MG TABLET PO PRN (22:08)
[2020-02-12] MEDS: THIAMINE HCL 100 MG TABLET (FP) PO SCH (22:08)
[2020-02-13] MEDS: LORazepam 0.5 MG TABLET PO SCH ×4 (05:54→22:30)
[2020-02-13] MEDS ORDERED: METHADONE HCL 5 MG TABLET (FOR DETOX USE ONLY) ONE (09:06)
[2020-02-13] MEDS ORDERED: METHADONE HCL 10 MG TABLET (FOR DETOX USE ONLY) ONE (09:06)
--- NOTE | 2020-02-13 09:32 | PN ---
[facility] CIWA - CIWA Score Nausea/Vomitin-No Nausea/No Vomiting Muscle Tremors: 2 Anxiety: 1-Mildly Anxious Agitation: 2 Paroxysmal Sweats: 1-Minimal Palms Moist Orientation: 0-Oriented Tacttile Disturbances: 0-None Auditory Disturbances: 0-None Visual Disturbances: 0-None Headache: 0-None Present CIWA-Ar Total Score: 6 [facility] COWS - Scale Resting Pulse: 0= [place] 80 or Below Sweatin= Chills/Flushing Restless Observation: 1= Difficult to Sit Still Pupil Size: 0= Normal to Room Light Bone or Joint Aches: 1= Mild Discomfort Runny Nose/ Eye Tearin= None GI Upset > 30mins: 0= None Tremor Observation of Outstretched Hands: 1= Tremor [place], Not Seen Yawning Observation: 1= 1-2x During Session Anxiety or Irritability: 1=Feels Anxious/Irritable Goose Flesh Skin: 0=Smooth Skin COWS Score: 6 [facility] Progress Note (SOAP) Subjective: anxiety sweats shakes interrupted sleep agitation Objective: 02/13/20 09:30 Vital Signs Temperature 987.0 F H 02/13/20 05:43 Pulse Rate 70 02/13/20 05:43 Respiratory Rate 16 02/13/20 05:43 Blood Pressure 138/101 H 02/13/20 05:43 O2 Sat by Pulse Oximetry (%) 97 02/13/20 05:43 Laboratory Tests 02/10/20 02/11/20 02/11/20 18:00 07:45 07:45 WBC 4.8 RBC 4.69 Hgb 11.3 L Hct 35.2 L MCV 75.0 L MCH 24.0 L MCHC 32.0 RDW 17.2 H Plt Count 235 MPV 8.0 Sodium Potassium Chloride Carbon Dioxide Anion Gap BUN Creatinine Est GFR (CKD-EPI)AfAm Est GFR (CKD-EPI)NonAf Random Glucose Calcium Total Bilirubin AST ALT Alkaline Phosphatase Total Protein Albumin Syphilis Serology Non-reactive COVID-19 (JANINE) Not detected 02/11/20 07:45 WBC RBC Hgb Hct MCV MCH MCHC RDW Plt Count MPV Sodium 138 Potassium 4.2 Chloride 102 Carbon Dioxide 29 Anion Gap 7 L BUN 10.7 Creatinine 0.8 Est GFR (CKD-EPI)AfAm 145.93 Est GFR (CKD-EPI)NonAf 125.91 Random Glucose 89 Calcium 9.3 Total Bilirubin 0.9 AST 32 ALT 25 Alkaline Phosphatase 88 Total Protein 7.0 Albumin 3.6 Syphilis Serology COVID-19 (JANINE) labs noted aaox3 ambulating no acute distress Assessment: 02/13/20 09:31 withdrawals Plan: continue detox increase fluids ativan prn extended at a lower dose until pt is d/c
[2020-02-13] MEDS: hydrOXYzine PAMOATE 25 MG CAPSULE (FP) PO PRN ×3 (09:37→19:30)
[2020-02-13] MEDS: NICOTINE 21 MG/24 HOURS TOPICAL PATCH TD SCH (09:38)
[2020-02-13] MEDS: PRENATAL VITAMINS W/ FOLIC ACID TABLET (FP) PO SCH (09:38)
[2020-02-13] MEDS ORDERED: METHADONE (DETOX) 10 MG, METHADONE (DETOX) 5 MG PO ONE (10:00)
[2020-02-13] MEDS: LORazepam 0.5 MG TABLET PO PRN ×2 (13:38→19:29)
[2020-02-13] MEDS: NICOTINE POLACRILEX 2 MG GUM BUC PRN ×2 (16:40→20:39)
[2020-02-13] MEDS: MELATONIN 5 MG TABLETS PO PRN (22:30)
[2020-02-13] MEDS: THIAMINE HCL 100 MG TABLET (FP) PO SCH (22:30)
[2020-02-13] MEDS ORDERED: hydrOXYzine PAMOATE 50 MG CAPSULE (FP) PO ONE (23:00)
[2020-02-14] MEDS ORDERED: LORazepam 0.5 MG TABLET PO ONE (05:00)
[2020-02-14] MEDS: hydrOXYzine PAMOATE 25 MG CAPSULE (FP) PO PRN (05:49)
[2020-02-14] MEDS: NICOTINE POLACRILEX 2 MG GUM BUC PRN (07:57)
[2020-02-14] MEDS ORDERED: METHADONE HCL 10 MG TABLET (FOR DETOX USE ONLY) PO ONE (10:00)
[2020-02-14 10:04] VITALS: BP 140/97; PULSE 109; TEMP 97.8
[2020-02-14] MEDS: PRENATAL VITAMINS W/ FOLIC ACID TABLET (FP) PO SCH (10:07)
[2020-02-14] MEDS: NICOTINE 21 MG/24 HOURS TOPICAL PATCH TD SCH (10:07)
[2020-02-14] MEDS: LORazepam 0.5 MG TABLET PO PRN (10:10)
[2020-02-14] MEDS ORDERED: hydrOXYzine PAMOATE 50 MG CAPSULE (FP) PO PRN (10:29)
--- NOTE | 2020-02-14 11:41 | PN ---
Psychiatric Progress Note Vital Signs: Vital Signs Period Temp Pulse Resp BP Sys/[place] Pulse Ox Last 24 Hr 97.3 F-98.2 F 83-109 16-20 113-140/66-97 98-100 Date of Session: 02/14/20 Chief Complaint:: "I'm not sleeping and i have anxiety." HPI: Patient admitted to for alcohol dependence. Consultation ordered due to patient reporting worsening anxiety and difficulty sleeping. ROS: Patient is ambulatory, alert +oriented + anxious. Current Medications: Active Medications Generic Name Dose Route Start Last Admin Trade Name Freq PRN Reason Stop Dose Admin Acetaminophen 650 mg 02/10/20 16:59 Tylenol - PO Q6H PRN PAIN LEVEL 4 - 6 Acetaminophen 650 mg 02/10/20 16:59 Tylenol - PO Q6H PRN FEVER Al Hydroxide/Mg Hydroxide 30 ml 02/10/20 16:59 Mylanta Oral Suspension - PO Q6H PRN DYSPEPSIA Bismuth Subsalicylate 524 mg 02/10/20 16:59 Pepto-Bismol - PO Q1H PRN DIARRHEA Eucalyptus/Menthol/Phenol/Sorbitol 1 each 02/10/20 16:59 Cepastat Lozenge - MM 02/16/20 16:59 Q4H PRN SORE THROAT Hydroxyzine Pamoate 50 mg 02/14/20 10:29 Vistaril - PO Q6H PRN ANXIETY Ibuprofen 400 mg 02/10/20 16:59 Motrin - PO Q6H PRN PAIN LEVEL 1 - 3 Lorazepam 0.5 mg 02/13/20 00:00 02/14/20 10:10 Ativan - PO 02/15/20 06:00 0.5 mg Q4H PRN Administration Symptoms of Withdrawal Magnesium Citrate 300 ml 02/10/20 16:59 Citroma - PO Q48H PRN CONSTIPATION Magnesium Hydroxide 30 ml 02/10/20 16:59 02/14/20 10:07 Milk Of Magnesia - PO 30 ml PRN PRN Administration CONSTIPATION Melatonin 10 mg 02/11/20 14:01 02/13/20 22:30 Melatonin PO 10 mg HS PRN Administration INSOMNIA Methadone HCl 5 mg 02/15/20 06:00 Dolophine - PO 02/15/20 06:01 ONCE@0600 ONE Methocarbamol 500 mg 02/10/20 16:59 02/13/20 09:38 Robaxin - PO 02/16/20 16:59 500 mg Q6H PRN Administration MUSCLE SPASMS Nicotine 21 mg 02/11/20 10:00 02/14/20 10:07 Nicoderm Patch - TD 21 mg DAILY KYMBERLY Administration Nicotine Polacrilex 2 mg 02/10/20 16:59 02/14/20 07:57 Nicorette Gum - BUC 2 mg Q2H PRN Administration NICOTINE REPLACEMENT RX Ondansetron HCl 4 mg 02/10/20 16:59 02/13/20 05:54 Zofran Odt - SL 4 mg Q8H PRN Administration Nausea/Vomiting Multivit/Folic Acid/Iron 1 tab 02/11/20 10:00 02/14/20 10:07 Vitamins (Sjr) - PO 1 tab DAILY KYMBERLY Administration Thiamine HCl 100 mg 02/10/20 22:00 02/13/20 22:30 Vitamin B1 - PO 100 mg HS KYMBERLY Administration Trazodone HCl 50 mg 02/14/20 22:00 Desyrel - PO HS [facility] Medication(s) Change(s): Yes. 1) Will d/c Vistaril 25mg q4h. 2) Will order Vistaril 50mg q6h. Current Side Effect: No Lab tests ordered: No Lab tests reviewed: Yes Provider note:: Patient seen by Dr. Mcdowell. Dr. Mcdowell's note read and appreciated. Mr. Jones reports worsening anxiety and diffculty sleeping. States that the vistaril 25mg q4h and melatonin 5mg is not effective. Medications reviewed. Will increase Vistaril and will add Trazodone 50mg HS for insomnia. Patient reports favorable effects from taking trazodone in the past. Patient educated on the importance of utilizing his coping skills to better manage his anxiety. Patient satisifed and receptive to feedback. Total face to face time:: 25 Mental Status Exam - Mental Status Exam Alert and Oriented to: Time, Place, Person Cognitive Function: Good Patient Appearance: Well Groomed Mood: Anxious Affect: Mood Congruent Patient Behavior: Cooperative Speech Pattern: Appropriate Voice Loudness: Normal Thought Process: Goal Oriented Thought Disorder: Not Present Hallucinations: Denies Suicidal Ideation: Denies Homicidal Ideation: Denies Insight/Judgement: Poor Sleep: Poorly Appetite: Fair Muscle strength/Tone: Normal Gait/Station: Normal Psychiatric Treatment Plan - Problem List (1) Alcohol dependence with withdrawal, uncomplicated Current Visit: Yes (2) Opioid dependence with withdrawal Current Visit: Yes (3) Bipolar disorder (manic depression) Current Visit: Yes (4) Nicotine dependence Current Visit: Yes Qualifiers: Nicotine product type: cigarettes Substance use status: uncomplicated Qualified Code(s): F17.210 - Nicotine dependence, cigarettes, uncomplicated (5) Substance-induced sleep disorder Current Visit: Yes
--- NOTE | 2020-02-14 11:51 | PN ---
[facility] CIWA - CIWA Score Nausea/Vomitin-No Nausea/No Vomiting Muscle Tremors: 1-None Visible, but Ages [place] Anxiety: 2 Agitation: 1-Slight > Activity Paroxysmal Sweats: No Perspiration Orientation: 0-Oriented Tacttile Disturbances: 0-None Auditory Disturbances: 0-None Visual Disturbances: 0-None Headache: 0-None Present CIWA-Ar Total Score: 4 S COWS - Scale Resting Pulse: 2= [place] 101-120 Sweatin= No chills or Flushing Restless Observation: 0= Sits Still Pupil Size: 0= Normal to Room Light Bone or Joint Aches: 1= Mild Discomfort Runny Nose/ Eye Tearin= None GI Upset > 30mins: 0= None Tremor Observation of Outstretched Hands: 1= Tremor Ages [place], Not Seen Yawning Observation: 0= None Anxiety or Irritability: 1=Feels Anxious/Irritable Goose Flesh Skin: 0=Smooth Skin COWS Score: 5 [facility] Progress Note (SOAP) Subjective: Complaints of mild tremors, joint aches and anxiety. Objective: 02/14/20 11:50 Vital Signs 02/14/20 02/14/20 05:30 09:35 Temperature 97.5 F L 97.8 F Pulse Rate 97 H 109 H Respiratory 20 17 Rate Blood Pressure 113/66 140/97 O2 Sat by Pulse 100 100 Oximetry (%) Laboratory Last Values WBC 4.8 K/mm3 (4.0-10.0) 02/11/20 07:45 RBC 4.69 M/mm3 (4.00-5.60) 02/11/20 07:45 Hgb 11.3 GM/dL (11.7-16.9) L 02/11/20 07:45 Hct 35.2 % (35.4-49) L 02/11/20 07:45 MCV 75.0 fl (80-96) L 02/11/20 07:45 MCH 24.0 pg (25.7-33.7) L 02/11/20 07:45 MCHC 32.0 g/dl (32.0-35.9) 02/11/20 07:45 RDW 17.2 % (11.9-15.9) H 02/11/20 07:45 Plt Count 235 K/MM3 (134-434) 02/11/20 07:45 MPV 8.0 fl (7.5-11.1) 02/11/20 07:45 Sodium 138 mmol/L (136-145) 02/11/20 07:45 Potassium 4.2 mmol/L (3.5-5.1) 02/11/20 07:45 Chloride 102 mmol/L (98-107) 02/11/20 07:45 Carbon Dioxide 29 mmol/L (21-32) 02/11/20 07:45 Anion Gap 7 MMOL/L (8-16) L 02/11/20 07:45 BUN 10.7 mg/dL (7-18) 02/11/20 07:45 Creatinine 0.8 mg/dL (0.55-1.3) 02/11/20 07:45 Est GFR (CKD-EPI)AfAm 145.93 02/11/20 07:45 Est GFR (CKD-EPI)NonAf 125.91 02/11/20 07:45 Random Glucose 89 mg/dL (74-106) 02/11/20 07:45 Calcium 9.3 mg/dL (8.5-10.1) 02/11/20 07:45 Total Bilirubin 0.9 mg/dL (0.2-1) 02/11/20 07:45 AST 32 U/L (15-37) 02/11/20 07:45 ALT 25 U/L (13-61) 02/11/20 07:45 Alkaline Phosphatase 88 U/L (45-117) 02/11/20 07:45 Total Protein 7.0 g/dl (6.4-8.2) 02/11/20 07:45 Albumin 3.6 g/dl (3.4-5.0) 02/11/20 07:45 Syphilis Serology Non-reactive (NONREACTIVE) 02/11/20 07:45 COVID-19 (JANINE) Not detected (Not Detected) 02/10/20 18:00 Labd noted. Assessment: 02/14/20 11:50 Alert and oriented x 3, in no acute distress. Full ROM, ambulating in the unit without assistance. Skin was to touch with any lesions. Withdrawal symptoms. Plan: Continue detox protocol. D/C in AM
--- NOTE | 2020-02-14 12:30 | DS ---
[facility] Detox Discharge Summary Admission Date: 02/10/20 Discharge Date: 02/14/20 - History Present History: Alcohol Dependence, Opioid Dependence Additional Comments: Alert and oriented x 3, in no acute respiratory distress. Full ROM, ambulating in unit without assistance. skin warm to touch with dry lesions to both arms. Wants to leave now instead of tomorrow because he has stuff to do. Pertinent Past History: History of alcohol, heroin and nicotine use disorder. - Physical Exam Results Vital Signs: Vital Signs Temperature 97.8 F 02/14/20 09:35 Pulse Rate 109 H 02/14/20 09:35 Respiratory Rate 17 02/14/20 09:35 Blood Pressure 140/97 02/14/20 09:35 O2 Sat by Pulse Oximetry (%) 100 02/14/20 09:35 Vital Signs 02/14/20 02/14/20 05:30 09:35 Temperature 97.5 F L 97.8 F Pulse Rate 97 H 109 H Respiratory 20 17 Rate Blood Pressure 113/66 140/97 O2 Sat by Pulse 100 100 Oximetry (%) Laboratory Last Values WBC 4.8 K/mm3 (4.0-10.0) 02/11/20 07:45 RBC 4.69 M/mm3 (4.00-5.60) 02/11/20 07:45 Hgb 11.3 GM/dL (11.7-16.9) L 02/11/20 07:45 Hct 35.2 % (35.4-49) L 02/11/20 07:45 MCV 75.0 fl (80-96) L 02/11/20 07:45 MCH 24.0 pg (25.7-33.7) L 02/11/20 07:45 MCHC 32.0 g/dl (32.0-35.9) 02/11/20 07:45 RDW 17.2 % (11.9-15.9) H 02/11/20 07:45 Plt Count 235 K/MM3 (134-434) 02/11/20 07:45 MPV 8.0 fl (7.5-11.1) 02/11/20 07:45 Sodium 138 mmol/L (136-145) 02/11/20 07:45 Potassium 4.2 mmol/L (3.5-5.1) 02/11/20 07:45 Chloride 102 mmol/L (98-107) 02/11/20 07:45 Carbon Dioxide 29 mmol/L (21-32) 02/11/20 07:45 Anion Gap 7 MMOL/L (8-16) L 02/11/20 07:45 BUN 10.7 mg/dL (7-18) 02/11/20 07:45 Creatinine 0.8 mg/dL (0.55-1.3) 02/11/20 07:45 Est GFR (CKD-EPI)AfAm 145.93 02/11/20 07:45 Est GFR (CKD-EPI)NonAf 125.91 02/11/20 07:45 Random Glucose 89 mg/dL (74-106) 02/11/20 07:45 Calcium 9.3 mg/dL (8.5-10.1) 02/11/20 07:45 Total Bilirubin 0.9 mg/dL (0.2-1) 02/11/20 07:45 AST 32 U/L (15-37) 02/11/20 07:45 ALT 25 U/L (13-61) 02/11/20 07:45 Alkaline Phosphatase 88 U/L (45-117) 02/11/20 07:45 Total Protein 7.0 g/dl (6.4-8.2) 02/11/20 07:45 Albumin 3.6 g/dl (3.4-5.0) 02/11/20 07:45 Syphilis Serology Non-reactive (NONREACTIVE) 02/11/20 07:45 COVID-19 (JANINE) Not detected (Not Detected) 02/10/20 18:00 Labs noted. Pertinent Admission Physical Exam Findings: withdrawal symptoms. - Treatment Hospital Course: Detox Protocol Followed, Detoxed Safely, Responded well, Discharged Condition Good - Medication Discharge Medications: Ambulatory Orders NK [No Known Home Medication] 10/06/18 - Diagnosis (1) Alcohol dependence with withdrawal, uncomplicated Current Visit: Yes Status: Acute (2) Opioid dependence with withdrawal Current Visit: Yes Status: Acute (3) Nicotine dependence Current Visit: Yes Status: Chronic Qualifiers: Nicotine product type: cigarettes Substance use status: uncomplicated Qualified Code(s): F17.210 - Nicotine dependence, cigarettes, uncomplicated - AMA Did Patient Leave Against Medical Advice: No
[2020-02-14] MEDS ORDERED: traZODone HCL 50 MG TABLET (FP) PO SCH (22:00)
[2020-02-15] MEDS ORDERED: METHADONE HCL 5 MG TABLET (FOR DETOX USE ONLY) PO ONE (06:00)
== END 2020-02-14 12:20 | disposition home or self-care (01) | DRG 773 ==
LOC: YASAS 15:16 → Y6N 18:00
PROVIDERS: ADMIT Allergy & Immunology; ATTEND Allergy & Immunology
PROC: HZ2ZZZZ Detoxification Services for Substance Abuse Treatment (ICD-10-PCS; principal; 2020-02-10)
DX: F10.20 Alcohol dependence, uncomplicated (principal); F11.23 Opioid dependence with withdrawal; F12.20 Cannabis dependence, uncomplicated; F17.210 Nicotine dependence, cigarettes, uncomplicated; F19.282 Other psychoactive substance dependence with psychoactive substance-induced sleep disorder; F31.9 Bipolar disorder, unspecified; D50.9 Iron deficiency anemia, unspecified; Z62.810 Personal history of physical and sexual abuse in childhood; Z91.410 Personal history of adult physical and sexual abuse
CPT/HCPCS: 36415; 80053; 85027; 86780; 93005; 93010; J0735; Q0162; U0003